=== PATIENT | male | born 1940 | race Caucasian/White ===

== ENCOUNTER 2019-11-09 09:36 | Observation (INO) ==
[2019-11-09] MEDS ORDERED: ENOXAPARIN 100 MG/ML SYRINGE SUBCUT STA (09:49)
[2019-11-09 10:00] LABS: Basophils % 0.4 % (0.0-0.8); Eosinophils # 0.2 10*3/uL (0.0-0.87); Eosinophils % 3.5 % (0.00-10.9); Hematocrit 38.5 VOL% (42.0-52.0); Hemoglobin 12.1 GM/DL (14.0-18.0); Immature Granulocytes % 0.3 %; Immature Granulocytes Absolute 0.02 #; Lymphocytes # 1.9 10*3/uL (1.4-4.0); Lymphocytes % 27.3 % (21.2-54.2); Mean Corpuscular HGB Conc 31.4 GM/DL (32-36); Mean Corpuscular Volume 88.1 FL (87-102); Mean Platelet Volume 9.4 FL (9.6-12.0); Monocytes % 8.1 % (1.7-12.7); Neutrophils % 60.4 % (38.7-73.9); Platelet Count 244 T/CUMM (130-400); Red Blood Count 4.37 MC/CUMM (3.8-5.5); Red Cell Distribution Width 13.5 % (9.3-17.3); White Blood Count 6.8 T/CUMM (4-12)
[2019-11-09 10:12] LABS: Partial Thromboplastin Time 28.8 SECS (23.9-33.8)
[2019-11-09] MEDS ORDERED: ONDANSETRON 4 MG/2 ML VIAL IV PRN (10:31)
[2019-11-09] MEDS ORDERED: ALUMINUM/MAGNES/SIMETH MAX STR 30 ML UDCUP PO PRN (10:31)
[2019-11-09] MEDS ORDERED: ACETAMINOPHEN 325 MG TABLET PO PRN (10:31)
[2019-11-09] MEDS ORDERED: hydrALAZINE 20 MG/1 ML VIAL IV PRN (10:31)
[2019-11-09 10:35] LABS: Albumin 3.1 G/DL (3.4-5.0); Bilirubin,Total 0.4 MG/DL (0.2-1.0); Calcium 8.8 MG/DL (8.5-10.1); Osmolality,Calculated 280.4 MOS/KG (273-304); Total Protein 7.5 G/DL (6.4-8.3)
[2019-11-09] MEDS ORDERED: APIXABAN 5 MG TABLET PO SCH (21:00)
[2019-11-09] MEDS: TAMSULOSIN 0.4 MG CAPSULE PO SCH (21:09)
[2019-11-09] MEDS: AMOXICILLIN/CLAV 875 MG TABLET PO SCH (21:09)
[2019-11-10 05:55] LABS: Basophils % 0.6 % (0.0-0.8); Eosinophils # 0.2 10*3/uL (0.0-0.87); Hematocrit 35.1 VOL% (42.0-52.0); Hemoglobin 11.1 GM/DL (14.0-18.0); Immature Granulocytes % 0.4 %; Immature Granulocytes Absolute 0.02 #; Lymphocytes # 1.3 10*3/uL (1.4-4.0); Mean Corpuscular HGB Conc 31.6 GM/DL (32-36); Mean Corpuscular Volume 86.9 FL (87-102); Mean Platelet Volume 9.5 FL (9.6-12.0); Monocytes % 8.4 % (1.7-12.7); Neutrophils % 61.6 % (38.7-73.9); Platelet Count 240 T/CUMM (130-400); Red Blood Count 4.04 MC/CUMM (3.8-5.5); Red Cell Distribution Width 13.4 % (9.3-17.3); White Blood Count 5.2 T/CUMM (4-12)
[2019-11-10] MEDS: LEVOTHYROXINE 150 MCG TABLET PO SCH (06:26)
[2019-11-10 06:28] LABS: Osmolality,Calculated 280.4 MOS/KG (273-304)
[2019-11-10] MEDS ORDERED: LEVOFLOXACIN INJ 500 MG in PREMIX 1 EACH IV ONE (06:30)
[2019-11-10] MEDS: AMOXICILLIN/CLAV 875 MG TABLET PO SCH ×2 (10:10→20:15)
[2019-11-10] MEDS: DUTASTERIDE 0.5 MG CAPSULE PO SCH (10:10)
[2019-11-10] MEDS: BICALUTAMIDE 50 MG TABLET PO SCH (10:11)
[2019-11-10] MEDS: TAMSULOSIN 0.4 MG CAPSULE PO SCH ×2 (10:11→20:15)
[2019-11-10] MEDS: DILTIAZEM CD 180 MG CAPSULE PO SCH (10:11)
[2019-11-10] MEDS: LOSARTAN 50 MG TABLET PO SCH (10:11)
[2019-11-10] MEDS: CHOLECALCIFEROL 1,000 UNIT TABLET PO SCH (10:11)
[2019-11-10] MEDS ORDERED: LIDOCAINE 2% TOP JELLY 20 ML VIAL INTRAURETH ONE (10:18)
[2019-11-10] MEDS ORDERED: LEVOFLOXACIN INJ 100 ML IV ONE (10:26)
[2019-11-10] MEDS ORDERED: LIDOCAINE 2% 5 ML VIAL ONE (10:57)
[2019-11-10] MEDS ORDERED: propofoL 200 MG/20 ML VIAL IV ONE (10:57)
[2019-11-10] MEDS ORDERED: PHENYLEPHRINE 1 MG/10 ML SYRINGE IV ONE (10:58)
[2019-11-10] MEDS ORDERED: ETOMIDATE 40 MG/20 ML VIAL IV ONE (10:58)
[2019-11-10] MEDS ORDERED: fentaNYL 100 MCG/2 ML VIAL ONE (10:58)
[2019-11-10] MEDS ORDERED: MIDAZOLAM 2 MG/2 ML VIAL ONE (10:58)
[2019-11-10] MEDS: SULFAMETHOX/TRIMETHOPRIM 800-160 MG TABLET PO SCH ×2 (15:25→20:15)
[2019-11-10] MEDS: APIXABAN 5 MG TABLET PO SCH (20:15)
[2019-11-11 06:00] LABS: Basophils % 0.3 % (0.0-0.8); Eosinophils # 0.1 10*3/uL (0.0-0.87); Hematocrit 35.6 VOL% (42.0-52.0); Hemoglobin 11.4 GM/DL (14.0-18.0); Immature Granulocytes % 0.3 %; Immature Granulocytes Absolute 0.02 #; Lymphocytes # 1.3 10*3/uL (1.4-4.0); Mean Corpuscular Volume 86.4 FL (87-102); Mean Platelet Volume 9.4 FL (9.6-12.0); Monocytes % 9.3 % (1.7-12.7); Neutrophils % 68.1 % (38.7-73.9); Platelet Count 239 T/CUMM (130-400); Red Blood Count 4.12 MC/CUMM (3.8-5.5); Red Cell Distribution Width 13.4 % (9.3-17.3); White Blood Count 6.6 T/CUMM (4-12)
[2019-11-11] MEDS: LEVOTHYROXINE 150 MCG TABLET PO SCH (06:07)
[2019-11-11 06:19] LABS: Calcium 8.8 MG/DL (8.5-10.1); Osmolality,Calculated 280.4 MOS/KG (273-304)
[2019-11-11] MEDS: DILTIAZEM CD 180 MG CAPSULE PO SCH (08:56)
[2019-11-11] MEDS: AMOXICILLIN/CLAV 875 MG TABLET PO SCH (08:56)
[2019-11-11] MEDS: BICALUTAMIDE 50 MG TABLET PO SCH (08:56)
[2019-11-11] MEDS: DUTASTERIDE 0.5 MG CAPSULE PO SCH (08:56)
[2019-11-11] MEDS: CHOLECALCIFEROL 1,000 UNIT TABLET PO SCH (08:57)
[2019-11-11] MEDS: LOSARTAN 50 MG TABLET PO SCH (08:57)
[2019-11-11] MEDS: TAMSULOSIN 0.4 MG CAPSULE PO SCH (08:57)
[2019-11-11] MEDS: SULFAMETHOX/TRIMETHOPRIM 800-160 MG TABLET PO SCH (08:57)
[2019-11-11] MEDS: APIXABAN 5 MG TABLET PO SCH (08:57)
[2019-11-11 11:21] VITALS: BP 133/80
[2019-11-11] MEDS ORDERED: APIXABAN 5 MG TABLET PO SCH (21:00)
== END 2019-11-11 12:12 | disposition home or self-care (01) ==
LOC: N.ED 09:36 → N.EDINP 09:36 → N.4E 13:59
PROVIDERS: ADMIT Internal Medicine; ATTEND Internal Medicine

== ENCOUNTER 2021-07-18 12:10 | Observation (INO) ==
[2021-07-18 13:05] LABS: Basophils % 0.2 % (0.0-0.8); Eosinophils % 0.8 % (0.00-10.9); Hematocrit 36.3 VOL% (42.0-52.0); Hemoglobin 11.4 GM/DL (14.0-18.0); Immature Granulocytes % 0.4 %; Immature Granulocytes Absolute 0.02 #; Lymphocytes # 0.9 10*3/uL (1.4-4.0); Lymphocytes % 17.5 % (21.2-54.2); Mean Corpuscular HGB Conc 31.4 GM/DL (32-36); Mean Corpuscular Volume 96.3 FL (87-102); Mean Platelet Volume 9.7 FL (9.6-12.0); Neutrophils % 73.1 % (38.7-73.9); Platelet Count 234 T/CUMM (130-400); Red Blood Count 3.77 MC/CUMM (3.8-5.5); Red Cell Distribution Width 13.1 % (9.3-17.3); White Blood Count 5.3 T/CUMM (4-12)
[2021-07-18 13:22] LABS: Albumin 2.9 G/DL (3.4-5.0); Bilirubin,Total 0.5 MG/DL (0.20-1.00); Calcium 7.8 MG/DL (8.5-10.1); Osmolality,Calculated 287.1 MOS/KG (273-304); Potassium 3.5 MMOL/L (3.5-5.1); Total Protein 6.2 G/DL (6.4-8.2)
[2021-07-18] MEDS ORDERED: ONDANSETRON 4 MG/2 ML VIAL IV PRN (15:00)
[2021-07-18] MEDS ORDERED: GLUCAGON 1 MG VIAL IM PRN (15:00)
[2021-07-18] MEDS ORDERED: DOCUSATE SODIUM 100 MG CAPSULE PO PRN (15:00)
[2021-07-18] MEDS ORDERED: ACETAMINOPHEN 325 MG TABLET PO PRN (15:00)
[2021-07-18] MEDS ORDERED: hydrALAZINE 20 MG/1 ML VIAL IV PRN (15:00)
[2021-07-18] MEDS ORDERED: DEXTROSE 10% 250 ML BAG IV PRN (15:06)
[2021-07-18] MEDS: SODIUM CHLORIDE 0.9% 1,000 ML IV SCH (18:47)
[2021-07-18] MEDS: APIXABAN 5 MG TABLET PO SCH (20:45)
[2021-07-18] MEDS ORDERED: predniSONE 5 MG TABLET PO SCH (21:00)
[2021-07-19] MEDS ORDERED: METOPROLOL TARTRATE 5 MG/5 ML VIAL IV ONE (00:35)
[2021-07-19] MEDS: SODIUM CHLORIDE 0.9% 1,000 ML IV SCH (02:55)
[2021-07-19 05:03] LABS: Basophils % 0.4 % (0.0-0.8); Eosinophils # 0.1 10*3/uL (0.0-0.87); Hematocrit 34.1 VOL% (42.0-52.0); Hemoglobin 10.8 GM/DL (14.0-18.0); Immature Granulocytes % 0.2 %; Immature Granulocytes Absolute 0.01 #; Lymphocytes % 19.8 % (21.2-54.2); Mean Corpuscular HGB Conc 31.7 GM/DL (32-36); Mean Corpuscular Volume 95.3 FL (87-102); Mean Platelet Volume 9.6 FL (9.6-12.0); Monocytes % 8.2 % (1.7-12.7); Neutrophils % 70.4 % (38.7-73.9); Platelet Count 256 T/CUMM (130-400); Red Blood Count 3.58 MC/CUMM (3.8-5.5); Red Cell Distribution Width 13.2 % (9.3-17.3); White Blood Count 5.3 T/CUMM (4-12)
[2021-07-19 05:19] LABS: Albumin 2.5 G/DL (3.4-5.0); Bilirubin,Total 0.5 MG/DL (0.20-1.00); Calcium 7.4 MG/DL (8.5-10.1); Potassium 3.7 MMOL/L (3.5-5.1); Risk Ratio 3.87; Total Protein 6.1 G/DL (6.4-8.2); VLDL Cholesterol 16.6 MG/DL
[2021-07-19] MEDS ORDERED: LEVOTHYROXINE 88 MCG TABLET PO SCH (07:00)
[2021-07-19] MEDS ORDERED: LOSARTAN 50 MG TABLET PO SCH (09:00)
[2021-07-19] MEDS ORDERED: PANTOPRAZOLE 40 MG TABLET PO SCH (09:00)
[2021-07-19] MEDS ORDERED: CHOLECALCIFEROL 1,000 UNIT TABLET PO SCH (09:00)
[2021-07-19] MEDS ORDERED: METOPROLOL SUCCINATE XL 100 MG TABLET PO SCH (09:00)
[2021-07-19] MEDS ORDERED: TAMSULOSIN 0.4 MG CAPSULE PO SCH (09:00)
[2021-07-19] MEDS: DILTIAZEM CD 240 MG CAPSULE PO SCH ×2 (10:00→11:13)
[2021-07-19] MEDS: APIXABAN 5 MG TABLET PO SCH (10:00)
[2021-07-19 12:45] VITALS: BP 126/83
== END 2021-07-19 12:27 | disposition home or self-care (01) ==
LOC: EDUNIT# → N.ED 12:10 → N.EDINP 12:10 → N.TELEN 15:56
PROVIDERS: ADMIT Internal Medicine; ATTEND Internal Medicine